=== PATIENT | male | born 1955 | race African-American/Black ===

== ENCOUNTER 2018-06-18 19:39 | Emergency (ER) | payer OTHER ==
[2018-06-18] MEDS ORDERED: Bacitracin Zinc 1 Packet ONE ×3 (20:45→21:15)
[2018-06-18] MEDS ORDERED: Adacel (T-DAP) 0.5 ML VIAL ONE (20:45)
== END 2018-06-18 21:30 | disposition home or self-care (01) ==
LOC: ERS 19:39
DX: S51.032A Puncture wound without foreign body of left elbow, initial encounter (principal); S71.131A Puncture wound without foreign body, right thigh, initial encounter; E11.9 Type 2 diabetes mellitus without complications; E78.5 Hyperlipidemia, unspecified; I10 Essential (primary) hypertension; Z79.899 Other long term (current) drug therapy; Z79.4 Long term (current) use of insulin; W54.0XXA Bitten by dog, initial encounter
CPT/HCPCS: 90471; 90715

== ENCOUNTER 2019-05-31 11:20 | Outpatient (CLI) | payer OTHER ==
--- NOTE | 2019-05-31 13:38 | RAD ---
LEFT KNEE 2 VIEWS WEIGHTBEARING: INDICATION: Disability exam. TRC exam. Left knee pain. FINDINGS: There is mild loss of medial joint space with mild degenerative spurring from the medial joint compar tment. Mild spurring at the patellofemoral joint. No joint effusion. No acute osseous abnormality. IMPRESSION: There are mild degenerative changes with mild loss of medial joint space. POS: [facility]
== END 2019-05-31 11:21 | disposition home or self-care (01) ==
LOC: BICRAD 11:20
PROVIDERS: ATTEND Internal Medicine
DX: Z02.71 Encounter for disability determination (principal); M17.12 Unilateral primary osteoarthritis, left knee

== ENCOUNTER 2021-04-03 10:17 | Outpatient (CLI) | payer OTHER | END 2021-04-03 10:18 | disposition home or self-care (01) | LOC: TBSIIMAG 10:17 | PROVIDERS: ATTEND Neurological Surgery | DX: M54.2 Cervicalgia (principal); M47.812 Spondylosis without myelopathy or radiculopathy, cervical region | CPT/HCPCS: 72050 ==